=== PATIENT | male | born 1945 | race Caucasian/White ===

== ENCOUNTER 2020-06-29 20:49 | Emergency (ER) | payer MEDICARE ==
[~2020-06-29] VITALS: Ht 172.7 cm; Wt 72.7 kg
[2020-06-29 21:29] LABS: HEMATOCRIT 37.5 % (39.0-50.0); HEMOGLOBIN 12.7 g/dl (14.0-18.0); IMMATURE GRANULOCYTES 0.3 % (0.0-5.0); MEAN CELL VOLUME 102.2 fL CALC (80.0-100.0); MEAN CORPUSCULAR HGB 34.6 pG CALC (26.0-32.0); MEAN CORPUSCULAR HGB CONC 33.9 g/dL CAL (32.0-36.0); NEUT# 4.88 thou/uL (1.82-7.42); RED BLOOD COUNT 3.67 mill/uL (4.70-6.10); RED CELL DISTRI WIDTH 12.7 % (11.5-15.5)
[2020-06-29 21:48] LABS: ACT PARTIAL THROMBO TIME 24.1 SECONDS (20.0-32.5); INTERNATIONAL NORMALIZED RATIO 1.2 RATIO (0.7-1.3); PROTHROMBIN TIME 11.9 SECONDS (9.0-12.5)
[2020-06-29 21:50] LABS: ALBUMIN 3.8 g/dL (3.2-5.0); ALKALINE PHOSPHATASE 40 u/l (38-126); ANION GAP 13 (6-22 (CALC)); BILIRUBIN, TOTAL 0.7 mg/dL (0.0-1.4); BUN 11 mg/dL (8-23); BUN/CREATININE RATIO 16 (12-20 (CALC)); CARBON DIOXIDE 27 mmol/l (22-30); CHLORIDE 99 mmol/l (95-108); CREATININE 0.7 mg/dL (0.7-1.3); ETHYL ALCOHOL 98 mg/dl (0-30); GFR > 60 ML/MIN (>=60 (CALC)); GFR FOR AFR.AMER. > 60 ML/MIN (>=60 (CALC)); SGOT/AST 32 u/l (19-48); SODIUM 135 mmol/l (137-146); TOTAL PROTEIN 6.2 g/dL (6.3-8.2)
[2020-06-29] MEDS ORDERED: GABAPENTIN100 MG PO (21:55)
[2020-06-29] MEDS ORDERED: BACLOFEN10 MG IE (21:55)
[2020-06-29] MEDS ORDERED: CYMBALTA30 MG PO (21:56)
[2020-06-29] MEDS ORDERED: ASPIRIN81 MG PO (21:57)
[2020-06-29] MEDS ORDERED: FISH OIL OMEGA-1 CAP PO (21:58)
[2020-06-29] MEDS ORDERED: FLAX SEED OIL1300 MG PO (21:59)
[2020-06-29] MEDS ORDERED: VITAMIN C1000 MG PO (22:03)
[2020-06-29] MEDS ORDERED: VITAMIN D5000 UNI1 PO (22:05)
[2020-06-29] MEDS ORDERED: TURMERIC500 M1 PO (22:06)
[2020-06-29] MEDS ORDERED: GLUCOSAMINE1500 M1 PO (22:07)
[2020-06-29] MEDS ORDERED: MAGNESIUM400 MG PO (22:08)
[2020-06-29] MEDS ORDERED: ZINC100 M1 PO (22:08)
[2020-06-29 23:15] LABS: URINE BILIRUBIN - DIPSTICK NEGATIVE (NEGATIVE); URINE BLOOD DIPSTICK NEGATIVE (NEGATIVE); URINE COLOR YELLOW; URINE GLUCOSE - DIPSTICK NEGATIVE (NEGATIVE); URINE KETONE NEGATIVE (NEGATIVE); URINE LEUK ESTERASE NEGATIVE (NEGATIVE); URINE NITRITE - DIPSTICK NEGATIVE (Negative); URINE PROTEIN - DIPSTICK NEGATIVE (NEG-TRACE); URINE SPECIFIC GRAVITY 1.015; URINE UROBILINOGEN - DIPSTICK 0.2 E.U./dL (0.2)
[2020-06-29 23:20] VITALS: BP 135/66
== END 2020-06-29 23:20 ==
LOC: ED 20:49
PROVIDERS: Family Medicine
DX: S72.142A Displaced intertrochanteric fracture of left femur, initial encounter for closed fracture (principal); G62.9 Polyneuropathy, unspecified; W19.XXXA Unspecified fall, initial encounter; Y93.89 Activity, other specified; Y92.009 Unspecified place in unspecified non-institutional (private) residence as the place of occurrence of the external cause

== ENCOUNTER 2020-07-26 14:07 | Emergency (ER) | payer MEDICARE ==
[~2020-07-26] VITALS: Ht 172.7 cm; Wt 72.7 kg
[~2020-07-26 14:07] MED LIST: ASPIRIN81 MG PO; BACLOFEN10 MG IE; CYMBALTA30 MG PO; FISH OIL OMEGA-1 CAP PO; FLAX SEED OIL1300 MG PO; GABAPENTIN100 MG PO; GLUCOSAMINE1500 M1 PO; MAGNESIUM400 MG PO; TURMERIC500 M1 PO; VITAMIN C1000 MG PO; VITAMIN D5000 UNI1 PO; ZINC100 M1 PO
[2020-07-26 15:36] VITALS: BP 148/84
== END 2020-07-26 15:43 | disposition home or self-care (01) ==
LOC: ED 14:07
DX: S70.02XA Contusion of left hip, initial encounter (principal); G62.9 Polyneuropathy, unspecified; W01.0XXA Fall on same level from slipping, tripping and stumbling without subsequent striking against object, initial encounter

== ENCOUNTER 2021-05-25 21:41 | Emergency (ER) | payer MEDICARE ==
[~2021-05-25] VITALS: Ht 172.7 cm; Wt 79.5 kg
[2021-05-25 22:55] LABS: HEMATOCRIT 35.9 % (39.0-50.0); HEMOGLOBIN 12.3 g/dl (14.0-18.0); IMMATURE GRANULOCYTES 0.7 % (0.0-5.0); MEAN CELL VOLUME 103.2 fL CALC (80.0-100.0); MEAN CORPUSCULAR HGB 35.3 pG CALC (26.0-32.0); MEAN CORPUSCULAR HGB CONC 34.3 g/dL CAL (32.0-36.0); NEUT# 4.36 thou/uL (1.82-7.42); RED BLOOD COUNT 3.48 mill/uL (4.70-6.10); RED CELL DISTRI WIDTH 12.1 % (11.5-15.5)
[2021-05-25 23:13] LABS: ALBUMIN 3.5 g/dL (3.2-5.0); ANION GAP 13 (6-22 (CALC)); BUN 10 mg/dL (8-23); BUN/CREATININE RATIO 17 (12-20 (CALC)); CARBON DIOXIDE 23 mmol/l (22-30); CHLORIDE 99 mmol/l (95-108); CREATININE 0.6 mg/dL (0.7-1.3); ETHYL ALCOHOL 93 mg/dl (0-30); GFR > 60 ML/MIN (>=60 (CALC)); GFR FOR AFR.AMER. > 60 ML/MIN (>=60 (CALC)); LIPASE 51 u/l (23-300); POTASSIUM 3.6 mmol/l (3.5-5.1); SGOT/AST 30 u/l (19-48); SODIUM 131 mmol/l (137-146); TOTAL PROTEIN 6.2 g/dL (6.3-8.2)
[2021-05-25 23:14] LABS: ALKALINE PHOSPHATASE 89 u/l (38-126); BILIRUBIN, TOTAL 0.3 mg/dL (0.0-1.4)
[2021-05-25 23:25] LABS: MYOGLOBIN 41 ng/mL (0 - 121)
[2021-05-26 00:31] LABS: URINE BILIRUBIN - DIPSTICK NEGATIVE (NEGATIVE); URINE BLOOD DIPSTICK NEGATIVE (NEGATIVE); URINE COLOR YELLOW; URINE GLUCOSE - DIPSTICK NEGATIVE (NEGATIVE); URINE KETONE NEGATIVE (NEGATIVE); URINE LEUK ESTERASE NEGATIVE (NEGATIVE); URINE PH 6.5 (4.5-8.0); URINE PROTEIN - DIPSTICK NEGATIVE (NEG-TRACE); URINE UROBILINOGEN - DIPSTICK 0.2 E.U./dL (0.2)
[2021-05-26 00:34] LABS: URINE NITRITE - DIPSTICK NEGATIVE (Negative)
[2021-05-26 00:56] VITALS: BP 107/67
[2021-05-26] MEDS ORDERED: ESCITALOPRAM OX10 MG PO (01:24)
[2021-05-26] MEDS ORDERED: TAMSULOSIN0.4 MG PO (01:24)
== END 2021-05-26 01:45 | disposition home or self-care (01) ==
LOC: ED 21:41
PROVIDERS: Emergency Medicine
DX: F10.10 Alcohol abuse, uncomplicated (principal); G62.9 Polyneuropathy, unspecified